=== PATIENT | female | born 1985 | race Caucasian/White ===

== ENCOUNTER 2017-12-29 16:04 | Emergency (ER) | payer MEDICAID, SELFPAY ==
[2017-12-29 16:06] VITALS: BP 116/74; PULSE 53; RESP 18; TEMP 37.1; O2SAT 97; BMI 20.6
[2017-12-29] MEDS: Acetaminophen 500 MG Tablet 1000 MG PO (16:48)
[2017-12-29] MEDS: Ondansetron 8 MG Tablet PO (16:48)
[2017-12-29 16:56] LABS: Absolute Lymphocyte Count 2.46 X10^3/ul (0.83-4.51); Absolute Neutrophil Count 3.1 X10^3/uL (2.0-7.7); Basophil# 0.03 X10^3/uL; Basophil% 0.5 % (0-1); Eosinophil# 0.02 X10^3/uL; Eosinophils% 0.3 % (0-5); Hematocrit 42.7 % (37-47); Hemoglobin 14.4 g/dl (12.0-15.0); Lymphocyte # 2.46 X10^3/ul (4.0); Lymphocyte % 39.8 % (19-41); Mean Corp Hgb Conc 33.7 g/gl (32-36); Mean Corpuscular Hgb 31.1 pg (27.0-32.0); Mean Corpuscular Volume 92.2 fL (81-99); Mean Platelet Vol. 8.8 fl (6.2-12.0); Monocyte% 9.7 % (0-10); Neutrophil # 3.06 X10^3/uL (2.7-7.7); Neutrophil % 49.5 % (47-70); POSITIVE COUNT NO; POSITIVE DIFFERENTIAL NO; POSITIVE MORPHOLOGY NO; Platelet Count 247 K/mm3 (150-450); RBC Distribution Width CV 11.9 % (11.6-14.6); RBC Distribution Width SD 40.1 fl (35.1-43.9); Red Blood Count 4.63 M/mm3 (4.2-5.4); White Blood Count 6.2 K/mm3 (4.4-11.0)
[2017-12-29 17:22] LABS: ALB/GLOB Ratio 1.3 RATIO (0.9-2.4); AST(SGOT) 17 U/L (15-37); Alanine Aminotransfer ALT/SGPT 20 U/L (13-56); Albumin, Serum 4.4 g/dL (3.2-5.0); Alkaline Phosphatase 38 U/L (45-117); Anion Gap 12 (5-15); BUN 12 mg/dL (7-18); BUN/Creat Ratio 16.6 RATIO (10-20); Calcium,Total 8.9 mg/dL (8.5-10.1); Chloride 104 mmol/L (98-107); Creatinine, Serum 0.72 mg/dL (0.55-1.02); EST Glomerular Filtration Rate 98 mL/min (>60); Est Glom Filt Rate - Afr Amer 119 mL/min (>60); Estimated Creatinine Clearance 80.41 ml/min; Globulin 3.4 g/dL (2.2-4.2); Glucose 97 mg/dL (74-106); Lipase 90 U/L (73-393); Potassium 3.6 mmol/L (3.5-5.1); Protein, Total 7.8 g/dL (6.4-8.2); Sodium Level 139 mmol/L (136-145)
[2017-12-29 17:34] LABS: Pregnancy, Serum, hCG Quali. NEGATIVE Negative (0-9 Nonpreg)
[2017-12-29 17:37] LABS: Alcohol, Blood (Medical)-Serum < 3.0 mg/dL
--- NOTE | 2017-12-29 18:00 | CT_ITS ---
STUDY: CT ABDOMEN AND PELVIS WITHOUT CONTRAST REASON FOR EXAM: Female, 32 years old. Lower abdominal pain and history of autism RADIATION DOSAGE (If Supplied By Facility): CTDIvol = ( 6.04 ) mGy, DLP = ( 271.80 ) mGycm TECHNIQUE: Transaxial images were obtained from the dome of the diaphragm to the symphysis pubis without oral contrast, and without intravenous contrast. Sagittal and coronal images were reconstructed. Individualized dose optimization techniques were used for this CT. COMPARISON: None. FINDINGS: The visualized lung bases are unremarkable. The visualized portions of the heart are within normal limits. Normal liver. Normal gallbladder and extrahepatic biliary system. Normal spleen. Normal pancreas. Normal bilateral adrenal glands. Normal right kidney. Uptake nonobstructing nephrolith on the left. Normal visualized stomach. Normal small intestine. Normal colon. The appendix is visualized and appears normal. Normal abdominal aorta. Normal inferior vena cava. Normal retroperitoneum. Normal urinary bladder. There is an IUD in the body of the uterus. Normal abdominal wall. Normal osseous structures. CT/Abdomen/Pelvis without Cont IMPRESSION: Nonobstructing nephrolith on the left. Electronically Signed: Mino Valdovinos MD at 18:25 EDT , Service support ,
[2017-12-29] MEDS: proMETHazine 25 MG/ML Syringe 6.25 MG IV (18:15)
[2017-12-29 18:17] VITALS: BP 110/70; PULSE 65; RESP 20; O2SAT 100
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
[2017-12-29 20:07] LABS: Red Blood Cells-Urine 0 SEEN /hpf (0-5)
[2017-12-29 20:10] LABS: Color, Urine Yellow (Yellow); Glucose, Dipstick Normal (Normal); Leukocyte Esterase-Dipstick 100 /ul (Negative); Nitrite-Dipstick Negative (Negative); Occult Blood-Urine 10 /ul (Negative); Protein-Dipstick 15 mg/dl (Negative); Urine Bilirubin Dipstick Negative (Negative); Urine Clarity Cloudy (Clear); Urine Urobilinogen 1 mg/dl (Normal)
[2017-12-29 20:20] LABS: Ketone-Dipstick 150 mg/dl (Negative); Mucous, Urine 2+ /hpf (<or=2+); Squamous Epithelial Cells - UA 5-10 SEEN /hpf (5-10)
[2017-12-29 20:21] LABS: Bacteria 2+ /hpf (None Seen); White Blood Cells 0-5 SEEN /hpf (0-5)
--- NOTE | 2017-12-29 20:21 | NURSING ---
DR. HUFFMAN MADE AWARE OF CRITICAL LAB VALUE OF URINE KETONE OF 150.
[2017-12-29 20:37] LABS: Amphetamine Urine VISTA NEGATIVE (<1000 ng/mL); Barbiturate Urine VISTA NEGATIVE (< 200 ng/mL); Benzodiazepine Urine VISTA NEGATIVE (< 200 ng/mL); Cocaine Urine VISTA NEGATIVE (< 300 ng/mL); Ecstacy Urine VISTA NEGATIVE (< 500 ng/mL); Methadone Urine VISTA NEGATIVE (< 300 ng/mL); PCP Urine VISTA NEGATIVE (< 25 ng/mL); THC Urine VISTA POSITIVE (< 50 ng/mL); Vista UDS pH Range 5
--- NOTE | 2017-12-29 20:39 | NURSING ---
CALLED [facility] AND THEY WILL NOTIFY SHAKILA ABOUT THE PATIENT
--- NOTE | 2017-12-29 22:14 | NURSING ---
SHAKILA FROM [facility] CALLED SHE IS HEADED TO SEE ANOTHER PATIENT THEN WILL BE HERE. DID STATE SHE WAS UNSURE HOW LONG SHE WILL BE WITH FIRST PATIENT.
[2017-12-29 22:29] VITALS: BP 108/74; PULSE 57; RESP 16; O2SAT 98
[2017-12-29] MEDS: 0.9% Normal Saline 1,000 ML 999 ML IV (22:30)
[2017-12-30 00:12] VITALS: BP 108/67; PULSE 74; RESP 16; O2SAT 97
[2017-12-30 02:47] VITALS: BP 121/69; PULSE 78; RESP 16; O2SAT 100
--- NOTE | 2017-12-30 02:48 | ED.RN ---
PERSONAL BELONGINGS RETURNED TO PATIENT
--- NOTE | 2017-12-30 02:53 | ED.VISSUMM ---
- ER Visit Summary Date of Service: 12/30/17 Chief Complaint: [] History of Present Illness: The patient is a 32 F [] Physical Examination: [] Test Results: [] Emergency Department Course and Treatment: [] Treatment Plan: [] Disposition: [] Impression: [] This note was generated with [employer] dictation software. It may contain incorrect words, spelling, and punctuation that were not noted in review of the chart prior to signing ED Disposition - Plan for ED Patient: Disposition: Home or Assisted Living Chief Complaint: Mental Health Diagnosis: Abdominal pain Instructions: ED Depression Prescriptions: Ondansetron [Zofran Odt] 4 mg PO Q8H PRN PRN #10 tablet PRN Reason: Nausea Referrals: Care Physician,No Primary [Primary Care Provider] - Additional Instructions: Follow-up with counseling center tomorrow as discussed with counselor.
[2017-12-30 03:03] VITALS: BP 114/78; PULSE 81; RESP 16; O2SAT 100
--- NOTE | 2017-12-30 03:04 | ED.RN ---
THIS NURSE REVIEWED D/C INSTRUCTIONS WITH PT. PT VERBALIZED UNDERSTANDING OF INSTRUCTIONS. IV D/C. IV CATHETER INTACT. PT TOLERATED WELL. PT DENIES FURTHER NEEDS OR QUESTIONS AT THIS TIME. PT AMBULATES FROM ROOM ON OWN WITHOUT ASSISTANCE FROMKimmy ROMANO
== END 2017-12-30 03:05 | disposition home or self-care (01) ==
PROVIDERS: Emergency Provider Emergency Medicine
DX: F32.9 Major depressive disorder, single episode, unspecified (principal); R11.2 Nausea with vomiting, unspecified; R10.9 Unspecified abdominal pain; F84.0 Autistic disorder
CPT/HCPCS: 74176; 80053; 80307; 80320; 81001; 83690; 84703; 85025; 96361; 96374; 99284; J7030; A4216; G0480